=== PATIENT | male | born 1980 | race Caucasian/White ===

== ENCOUNTER 2023-12-20 16:24 | Inpatient (IN) | payer OTHER ==
[2023-12-20 18:32] VITALS: BMI 19.7
[2023-12-20] MEDS ORDERED: P-EPHED 60MG/TRIPROLIDI 2.5MG TABLET PO PRN (22:11)
[2023-12-20] MEDS ORDERED: BISMUTH SUBSALICYLATE 524 MG/30 ML PO PRN (22:11)
[2023-12-20] MEDS ORDERED: BENZONATATE 200 MG CAPSULE PO PRN (22:11)
[2023-12-20] MEDS ORDERED: IBUPROFEN 600 MG TABLET (FP) PO PRN (22:11)
[2023-12-20] MEDS ORDERED: IBUPROFEN 400 MG TABLET (FP) PO PRN (22:11)
[2023-12-20] MEDS ORDERED: NICOTINE POLACRILEX 2 MG GUM BUC PRN (22:11)
[2023-12-20] MEDS ORDERED: MAGNESIUM HYDROX 2400MG/30ML ORAL SUSPENSION 30 ML CUP PO PRN (22:11)
[2023-12-20] MEDS ORDERED: BENZOCAINE/MENTHOL (CHLORASEPTIC ) LOZENGE MM PRN (22:11)
[2023-12-20] MEDS ORDERED: POLYETHYLENE GLYCOL (HEALTHYLAX) 3350 17 GM PACKET PO PRN (22:11)
[2023-12-20] MEDS ORDERED: NALOXONE HCL (KLOXXADO) 8 MG SPRAY NS PRN (22:11)
[2023-12-20] MEDS ORDERED: ACETAMINOPHEN 325 MG TABLET (FP) PO PRN (22:11)
[2023-12-20] MEDS ORDERED: LOPERAMIDE HCL 2 MG CAPSULE PO PRN (22:11)
[2023-12-20] MEDS ORDERED: guaiFENesin 600 MG TABLET.ER (FP) PO PRN (22:11)
[2023-12-20] MEDS ORDERED: MAG HYDROX/AL HYDROX/SIMETH 30 ML UNIT-DOSE CUP PO PRN (22:11)
[2023-12-20] MEDS ORDERED: DICYCLOMINE HCL 10 MG CAPSULE PO PRN (22:11)
[2023-12-20] MEDS ORDERED: NALOXONE HCL 0.4 MG/ML VIAL IM PRN (22:11)
[2023-12-21] MEDS ORDERED: levETIRAcetam 500 MG TABLET (FP) PO ONE (01:50)
[2023-12-21] MEDS: levETIRAcetam 500 MG TABLET (FP) PO SCH (01:52)
[2023-12-21] MEDS: PRENATAL VITAMINS W/ FOLIC ACID TABLET (FP) PO SCH (09:38)
[2023-12-21] MEDS: ONDANSETRON *ODT* 4 MG TABLET SL PRN (09:45)
[2023-12-21] MEDS ORDERED: methaDONE HCL 10 MG TABLET PO SCH (10:30)
[2023-12-21] MEDS: diazePAM 5 MG TABLET PO SCH (11:40)
[2023-12-21 12:21] LABS: HEMATOCRIT 35.7 % (35.4-49); HEMOGLOBIN 11.9 GM/dL (11.7-16.9); MCH 33.6 pg (25.7-33.7); MCHC 33.5 g/dl (32.0-35.9); MEAN CELL VOLUME 100.3 fl (80-96); MEAN PLT VOLUME 7.5 fl (7.5-11.1); PLATELET COUNT 177 10^3/uL (134-434); RBC 3.56 M/mm3 (4.00-5.60); RDW 13.8 % (11.9-15.9); WHITE BLOOD COUNT 3.4 K/mm3 (4.0-10.0)
[2023-12-21 12:53] LABS: CHLORIDE 106 mmol/L (98-107); POTASSIUM 4.1 mmol/L (3.5-5.1); SODIUM 139 mmol/L (136-145)
[2023-12-21 12:59] LABS: CALCIUM 9.4 mg/dL (8.5-10.1); GLUCOSE,RANDOM 100 mg/dL (74-106)
[2023-12-21 13:00] LABS: ALBUMIN 3.4 g/dl (3.4-5.0); ANION GAP 4 mmol/L (4-13); BLOOD UREA NITROGEN 12.5 mg/dL (7-18); CO2 30 mmol/L (21-32)
[2023-12-21 13:03] LABS: CREATININE 0.8 mg/dL (0.55-1.3); SGOT/AST 33 U/L (15-37); SGPT/ALT 27 U/L (13-61)
[2023-12-21 13:05] LABS: BILIRUBIN,TOTAL 0.3 mg/dL (0.2-1)
[2023-12-21 13:06] LABS: ALK PHOS 64 U/L (45-117)
[2023-12-21] MEDS: THIAMINE HCL 100 MG TABLET (FP) PO SCH (22:13)
[2023-12-21] MEDS: MELATONIN 5 MG TABLETS PO SCH (22:13)
[2023-12-21] MEDS: METHOCARBAMOL 500 MG TABLET PO PRN (22:13)
[2023-12-23] MEDS: diazePAM 5 MG TABLET PO SCH (05:42)
[2023-12-23] MEDS: diazePAM 5 MG TABLET PO PRN (09:35)
[2023-12-24] MEDS: diazePAM 5 MG TABLET PO SCH (05:49)
[2023-12-24 09:44] VITALS: BP 109/71; PULSE 55; RESP 18; TEMP 97.5
[2023-12-25] MEDS ORDERED: diazePAM 5 MG TABLET PO ONE (06:00)
== END 2023-12-24 12:05 | disposition home or self-care (01) | DRG 773 ==
LOC: YASAS 16:24 → Y3N 23:41
PROVIDERS: ADMIT Allergy & Immunology; ATTEND Surgery
PROC: HZ2ZZZZ Detoxification Services for Substance Abuse Treatment (ICD-10-PCS; principal; 2023-12-20)
DX: F10.230 Alcohol dependence with withdrawal, uncomplicated (principal); F11.20 Opioid dependence, uncomplicated; F13.20 Sedative, hypnotic or anxiolytic dependence, uncomplicated; F14.20 Cocaine dependence, uncomplicated; F17.210 Nicotine dependence, cigarettes, uncomplicated
CPT/HCPCS: 36415; 80053; 80307; 85027; 86780; 93005; 93010; Q0162